=== PATIENT | male | born 1955 | race Caucasian/White ===

== ENCOUNTER 2020-10-27 07:28 | Day surgery (SDC) | payer OTHER ==
[2020-10-22 10:10] VITALS: BMI 25.1
[2020-10-27] MEDS ORDERED: LIDOCAINE HCL/PF 2% SDV 5ML VIAL ONE (07:37)
[2020-10-27] MEDS ORDERED: PROPOFOL 20 ML ONE ×4 (07:37)
[2020-10-27 09:37] VITALS: BP 120/65; PULSE 80; TEMP 98
== END 2020-10-27 09:37 | disposition home or self-care (01) ==
LOC: FASU-ENDO 07:28
PROVIDERS: ATTEND Internal Medicine Gastroenterology
PROC: 0DJD8ZZ Inspection of Lower Intestinal Tract, Via Natural or Artificial Opening Endoscopic (ICD-10-PCS; principal; 2020-10-27 08:13)
DX: Z12.11 Encounter for screening for malignant neoplasm of colon (principal); K57.30 Diverticulosis of large intestine without perforation or abscess without bleeding